=== PATIENT | female | born 1990 | race Caucasian/White ===

== ENCOUNTER 2019-01-18 08:45 | Emergency (ER) | payer MEDICAID, OTHER ==
[~2019-01-18] VITALS: Ht 160 cm; Wt 61.2 kg
[2019-01-18 09:16] VITALS: BP 134/74
== END 2019-01-18 10:16 | disposition home or self-care (01) ==
LOC: ER 08:50
DX: S10.86XA Insect bite of other specified part of neck, initial encounter (principal); S20.462A Insect bite (nonvenomous) of left back wall of thorax, initial encounter; S20.461A Insect bite (nonvenomous) of right back wall of thorax, initial encounter; S60.862A Insect bite (nonvenomous) of left wrist, initial encounter; S60.861A Insect bite (nonvenomous) of right wrist, initial encounter; S90.562A Insect bite (nonvenomous), left ankle, initial encounter; S90.561A Insect bite (nonvenomous), right ankle, initial encounter; W57.XXXA Bitten or stung by nonvenomous insect and other nonvenomous arthropods, initial encounter; Y93.89 Activity, other specified; Y99.8 Other external cause status; Y92.89 Other specified places as the place of occurrence of the external cause

== ENCOUNTER 2019-08-19 16:57 | Emergency (ER) | payer MEDICAID ==
[~2019-08-19] VITALS: Ht 160 cm; Wt 61.2 kg
[2019-08-19 17:37] LABS: Basophils # (auto) 0 uL; Basophils % (auto) 0.4 % (0.0-2.0); Eosinophils # (auto) 0.1 uL; Eosinophils % (auto) 1.3 % (0.0-7.0); Hemoglobin 15.2 g/dL (12.2-16.2); Lymphocytes # (auto) 1.8 uL; Lymphocytes % (auto) 23.8 % (10.0-50.0); Mean Corpuscular Hemoglobin 30.9 pg (28.0-32.0); Mean Corpuscular Hgb Conc. 34.4 g/dL (32.0-36.0); Mean Corpuscular Volume 89.6 fL (80.0-100.0); Monocytes # (auto) 0.4 uL; Monocytes % (auto) 5.9 % (0.0-12.0); Neutrophils # (auto) 5.1 uL; Neutrophils % (auto) 68.6 % (37.0-80.0); Platelet Count (auto) 312 10^3/uL (140-450); Red Blood Cells 4.91 10^6/uL (4.0-5.20); Red Cell Distribution Width 12.8 % (11.8-14.3); White Blood Cell 7.4 10^3/uL (4.4-10.8)
[2019-08-19 17:50] LABS: INR 1.01 (0.9-1.15); Partial Thromboplastin Time 25.3 sec (23.64-32.05)
[2019-08-19 17:52] LABS: Albumin 4.5 g/dL (3.4-5.0); BUN/Creatinine Ratio 18.3
[2019-08-19 17:55] LABS: Bilirubin, Total 0.7 mg/dL (0.2-1.0); Total Protein 8.1 g/dL (6.4-8.2)
[2019-08-19] MEDS ORDERED: ONDANSETRON HCL 4 MG/2 ML VIAL ONE (18:15)
[2019-08-19] MEDS ORDERED: ONDANSETRON HCL 4 MG/2 ML VIAL IV ONE ×3 (18:30→20:45)
[2019-08-19] MEDS ORDERED: MORPHINE SULFATE 4 MG/ML SYR/VIAL IV ONE (19:00)
[2019-08-19] MEDS ORDERED: diphenhdrAMINE HCL 50 MG/1 ML VL ONE (19:06)
[2019-08-19] MEDS ORDERED: diphenhdrAMINE HCL 50 MG/1 ML VL IV ONE (19:15)
[2019-08-19] MEDS ORDERED: HYDROmorphone HCL 2 MG/ML VL IV ONE (20:45)
[2019-08-19 21:32] VITALS: BP 115/69
== END 2019-08-19 22:20 | disposition home or self-care (01) ==
LOC: ER 16:57
DX: N93.9 Abnormal uterine and vaginal bleeding, unspecified (principal); R11.2 Nausea with vomiting, unspecified; Z88.1 Allergy status to other antibiotic agents; Z90.89 Acquired absence of other organs
CPT/HCPCS: 36415; 76856; 80053; 84702; 85025; 85610; 85730; 86850; 86900; 86901; 96374; 96375; 96376; 99284; J1170; J1200; J2270; J2405

== ENCOUNTER 2019-09-09 12:47 | Emergency (ER) | payer MEDICAID ==
[~2019-09-09] VITALS: Ht 160 cm; Wt 63.5 kg
[2019-09-09 13:51] LABS: Basophils # (auto) 0.1 uL; Eosinophils # (auto) 0.4 uL; Eosinophils % (auto) 6.2 % (0.0-7.0); Hematocrit 40.5 % (36.0-46.0); Hemoglobin 13.7 g/dL (12.2-16.2); Lymphocytes # (auto) 1.8 uL; Lymphocytes % (auto) 28.9 % (10.0-50.0); Mean Corpuscular Hemoglobin 30.7 pg (28.0-32.0); Mean Corpuscular Hgb Conc. 33.9 g/dL (32.0-36.0); Mean Corpuscular Volume 90.5 fL (80.0-100.0); Monocytes # (auto) 0.4 uL; Monocytes % (auto) 6.9 % (0.0-12.0); Neutrophils # (auto) 3.5 uL; Nucleated Red Blood Cells % 0.1 %; Platelet Count (auto) 253 10^3/uL (140-450); Red Blood Cells 4.48 10^6/uL (4.0-5.20); White Blood Cell 6.2 10^3/uL (4.4-10.8)
[2019-09-09 14:13] LABS: Albumin 3.7 g/dL (3.4-5.0); BUN/Creatinine Ratio 14.1; Calcium 8.7 mg/dL (8.5-10.1); Potassium 3.9 mmol/L (3.5-5.1)
[2019-09-09 14:16] LABS: Bilirubin, Total 0.5 mg/dL (0.2-1.0); Total Protein 7.3 g/dL (6.4-8.2)
[2019-09-09 15:33] LABS: Urine Bacteria FEW /hpf (None Seen); Urine Blood 3+ /uL (Negative); Urine Mucus FEW (None Seen); Urine Specific Gravity 1.027 (1.001-1.035); Urine WBC 37 /hpf (0 - 5)
[2019-09-09] MEDS: PROMETHAZINE HCL 25 MG/ML 1ML IV ONE (17:32)
[2019-09-09] MEDS: MORPHINE SULF INJ 2 MG/ML SYRINGE 1ML IV ONE (17:38)
[2019-09-09] MEDS: SODIUM CHLORIDE 0.9% 1,000 ML IVB ONE (17:39)
[2019-09-09] MEDS: cefTRIAXone 1GM/50ML D5W 50 ML IV ONE (17:39)
[2019-09-09 18:31] VITALS: BP 108/49
== END 2019-09-09 20:51 | disposition home or self-care (01) ==
LOC: ER 13:00
DX: N92.0 Excessive and frequent menstruation with regular cycle (principal); N39.0 Urinary tract infection, site not specified; Z88.1 Allergy status to other antibiotic agents; Z32.02 Encounter for pregnancy test, result negative
CPT/HCPCS: 36415; 74176; 76856; 80053; 81001; 81025; 84702; 85025; 96365; 96375; 99284; J0696; J2270; J2550

== ENCOUNTER 2019-12-27 20:32 | Emergency (ER) | payer MEDICAID ==
[~2019-12-27] VITALS: Ht 160 cm; Wt 58.1 kg
[2019-12-27 21:07] LABS: Urine Bacteria NONE SEEN /hpf (None Seen); Urine Blood Negative /uL (Negative); Urine Specific Gravity 1.024 (1.001-1.035); Urine WBC 5 /hpf (0 - 5)
[2019-12-27] MEDS ORDERED: MORPHINE SULFATE 4 MG/ML SYR/VIAL IV ONE (21:30)
[2019-12-27] MEDS ORDERED: ONDANSETRON HCL 4 MG/2 ML VIAL IV ONE (21:30)
[2019-12-27] MEDS ORDERED: SODIUM CHLORIDE 0.9% 1,000 ML IV ONE ×2 (21:30→22:45)
[2019-12-27 21:44] LABS: Basophils # (auto) 0 10 ^3/uL (0-0.2); Basophils % (auto) 0.5 % (0.0-2.0); Eosinophils # (auto) 0.3 10 ^3/uL (0-0.8); Eosinophils % (auto) 3.8 % (0.0-7.0); Hematocrit 44.9 % (36.0-46.0); Hemoglobin 14.9 g/dL (12.2-16.2); Lymphocytes # (auto) 2.8 10 ^3/uL (0.4-5.4); Lymphocytes % (auto) 41.4 % (10.0-50.0); Mean Corpuscular Hemoglobin 28.9 pg (28.0-32.0); Mean Corpuscular Hgb Conc. 33.1 g/dL (32.0-36.0); Mean Corpuscular Volume 87.3 fL (80.0-100.0); Monocytes # (auto) 0.5 10 ^3/uL (0-1.3); Monocytes % (auto) 7.2 % (0.0-12.0); Neutrophils # (auto) 3.2 10 ^3/uL (1.6-8.6); Neutrophils % (auto) 47.1 % (37.0-80.0); Platelet Count (auto) 315 10^3/uL (140-450); Red Blood Cells 5.14 10^6/uL (4.0-5.20); Red Cell Distribution Width 13.2 % (11.8-14.3); White Blood Cell 6.8 10^3/uL (4.4-10.8)
[2019-12-27 22:07] LABS: Calcium 8.3 mg/dL (8.5-10.1); Potassium 3.8 mmol/L (3.5-5.1)
[2019-12-27 22:10] LABS: BUN/Creatinine Ratio 25.5; Bilirubin, Total 0.4 mg/dL (0.2-1.0); Total Protein 7.9 g/dL (6.4-8.2)
[2019-12-27] MEDS ORDERED: IOHEXOL 300 MG/ML 100ML BOTTLE IJ ONE (22:36)
[2019-12-27] MEDS ORDERED: diphenhdrAMINE HCL 50 MG/1 ML VL IV ONE (23:45)
[2019-12-27 23:54] VITALS: BP 111/72
[2020-06-10] MEDS ORDERED: CLIN300C8 PO (12:18)
[2020-06-10] MEDS ORDERED: SACC250C PO ×2 (12:18→12:25)
== END 2019-12-28 00:31 | disposition home or self-care (01) ==
LOC: ER 20:32
DX: N12 Tubulo-interstitial nephritis, not specified as acute or chronic (principal); K52.9 Noninfective gastroenteritis and colitis, unspecified
CPT/HCPCS: 36415; 74177; 80053; 81001; 82150; 83690; 84702; 85025; 96361; 96374; 96375; 99285; J1200; J2270; J2405; J7030; Q9967

== ENCOUNTER 2020-05-05 18:43 | Inpatient (IN) | payer MEDICAID ==
[~2020-05-05] VITALS: Ht 165.1 cm; Wt 77.9 kg
[2020-05-05] MEDS ORDERED: SODIUM CHLORIDE 0.9% 1,000 ML IVB ONE (19:28)
[2020-05-05 20:10] LABS: Basophils # (auto) 0 10 ^3/uL (0-0.2); Basophils % (auto) 0.4 % (0.0-2.0); Eosinophils # (auto) 0.1 10 ^3/uL (0-0.8); Eosinophils % (auto) 0.5 % (0.0-7.0); Hematocrit 48.4 % (36.0-46.0); Hemoglobin 16.2 g/dL (12.2-16.2); Lymphocytes # (auto) 1.8 10 ^3/uL (0.4-5.4); Lymphocytes % (auto) 19.1 % (10.0-50.0); Mean Corpuscular Hemoglobin 28.3 pg (28.0-32.0); Mean Corpuscular Hgb Conc. 33.5 g/dL (32.0-36.0); Mean Corpuscular Volume 84.6 fL (80.0-100.0); Monocytes # (auto) 0.6 10 ^3/uL (0-1.3); Monocytes % (auto) 6.3 % (0.0-12.0); Neutrophils # (auto) 6.9 10 ^3/uL (1.6-8.6); Neutrophils % (auto) 73.7 % (37.0-80.0); Platelet Count (auto) 309 10^3/uL (140-450); Red Blood Cells 5.73 10^6/uL (4.0-5.20); Red Cell Distribution Width 14.6 % (11.8-14.3); White Blood Cell 9.4 10^3/uL (4.4-10.8)
[2020-05-05 20:27] LABS: Albumin 4.2 g/dL (3.4-5.0); Anion Gap 7 (5-15); Blood Alcohol < 3.0 mg/dL (0-5); Blood Urea Nitrogen 12 mg/dL (7-18); Calcium 9.3 mg/dL (8.5-10.1); Carbon Dioxide 22 mmol/L (21-32); Chloride 102 mmol/L (98-107); Glucose 113 mg/dL (74-106); INR 0.98 (0.9-1.15); Partial Thromboplastin Time 26.2 sec (23.0-31.2); Potassium 4.1 mmol/L (3.5-5.1); Sodium 131 mmol/L (136-145)
[2020-05-05 20:31] LABS: Urine Bacteria NONE SEEN /hpf (None Seen); Urine Blood Negative /uL (Negative); Urine Specific Gravity 1.015 (1.001-1.035); Urine WBC 1 /hpf (0 - 5)
[2020-05-05 20:32] LABS: Alanine Aminotransferase 39 U/L (13-56); Alkaline Phosphatase 102 U/L (45-117); Aspartate Aminotransferase 37 U/L (15-37); BUN/Creatinine Ratio 16.7; Bilirubin, Total 0.6 mg/dL (0.2-1.0); GFR African American 122 mL/min; GFR Non-African American 101 mL/min; Total Protein 8.4 g/dL (6.4-8.2)
[2020-05-05 20:43] LABS: Alcohol, Urine < 3.0 mg/dL (0-10); Amphetamine Screen, Urine NEGATIVE (NEGATIVE); Barbiturate Scree,Urine NEGATIVE (NEGATIVE); Cannabinoid Screen, Urine NEGATIVE (NEGATIVE); Cocaine Screen, Urine NEGATIVE (NEGATIVE); Opiate Scree,Urine NEGATIVE (NEGATIVE); Phencyclidine Screen, Urine NEGATIVE (NEGATIVE)
[2020-05-05 21:03] LABS: Benzodiazephine Screen, Urine POSITIVE (NEGATIVE)
[2020-05-05] MEDS ORDERED: MORPHINE SULF INJ 2 MG/ML SYRINGE 1ML IV ONE (22:15)
[2020-05-05] MEDS ORDERED: ONDANSETRON HCL 4 MG/2 ML VIAL IV ONE (22:15)
[2020-05-06] MEDS ORDERED: ONDANSETRON HCL 4 MG/2 ML VIAL IV PRN (00:30)
--- NOTE | 2020-05-06 01:20 | NUR ---
MS admit from ER TORO GONZALEZ admitted to MS. Patient oriented to DEBI MCQUEEN, primary RN, unit, room, bed, and unit policies regarding patient care and visiting hours. Patient weighed by bedscale and encouraged to call if they need something. Patient is very lethargic and will only respond with one word answers. Patient currently laying in bed with the rails up x2. Bed is locked in the lowest position.
[2020-05-06] MEDS ORDERED: AMI25T PO (01:39)
[2020-05-06] MEDS ORDERED: ALBU108A5 INH (01:40)
[2020-05-06] MEDS ORDERED: LEVE500T32 PO (01:54)
[2020-05-06 05:00] VITALS: BP 122/71
[2020-05-06 08:00] VITALS: BP 118/68
[2020-05-06 09:00] VITALS: BP 118/65
[2020-05-06] MEDS: FAMOTIDINE 20 MG TAB PO SCH ×2 (10:15→21:34)
[2020-05-06] MEDS ORDERED: ALBUTEROL SULF 2.5 MG/0.5ML(0.5%) NEB SOLN NEB PRN (15:15)
[2020-05-06] MEDS ORDERED: IPRATROPIUM BROM 0.5 MG/2.5ML INH SOL NEB PRN (15:15)
[2020-05-06 17:00] VITALS: BP 116/69
[2020-05-06] MEDS: SODIUM CHLORIDE 0.9% 1,000 ML IV SCH (18:03)
[2020-05-06 20:12] VITALS: BP 116/69
[2020-05-06 22:00] VITALS: BP 119/66
[2020-05-07 05:00] VITALS: BP 114/75
[2020-05-07 07:19] LABS: BUN/Creatinine Ratio 22.1; Calcium 8.3 mg/dL (8.5-10.1); Potassium 3.8 mmol/L (3.5-5.1)
--- NOTE | 2020-05-07 07:30 | NUR ---
ASSESSED PT FOR PRN MED NEB. PT ON ROOM AIR WITH NO DISTRESS NOTED. SP02 97% NO INDICATION FOR PRN MED NEB AT THIS TIME.
[2020-05-07 07:43] LABS: Basophils # (auto) 0.1 10 ^3/uL (0-0.2); Basophils % (auto) 0.5 % (0.0-2.0); Eosinophils # (auto) 0 10 ^3/uL (0-0.8); Eosinophils % (auto) 0.3 % (0.0-7.0); Hematocrit 42.7 % (36.0-46.0); Hemoglobin 14.2 g/dL (12.2-16.2); Lymphocytes # (auto) 2.3 10 ^3/uL (0.4-5.4); Lymphocytes % (auto) 20.3 % (10.0-50.0); Mean Corpuscular Hemoglobin 28.3 pg (28.0-32.0); Mean Corpuscular Hgb Conc. 33.3 g/dL (32.0-36.0); Mean Corpuscular Volume 85.1 fL (80.0-100.0); Monocytes # (auto) 0.8 10 ^3/uL (0-1.3); Monocytes % (auto) 7.1 % (0.0-12.0); Neutrophils # (auto) 8.1 10 ^3/uL (1.6-8.6); Neutrophils % (auto) 71.8 % (37.0-80.0); Nucleated Red Blood Cells % 0.1 %; Platelet Count (auto) 259 10^3/uL (140-450); Red Blood Cells 5.02 10^6/uL (4.0-5.20); Red Cell Distribution Width 15.2 % (11.8-14.3); White Blood Cell 11.3 10^3/uL (4.4-10.8)
--- NOTE | 2020-05-07 07:49 | NUR ---
Opening Note Assumed pt care from NOC RN. Pt is a/ox4 with no s/s of distress or SOB. Pt is currently laying in bed with no complaints at this time. Discussed POC with pt and pending Neurology consult. Safety measures maintained with call light within reach, bed in lowest position and side rails up. Will continue to monitor for changes.
[2020-05-07] MEDS: SODIUM CHLORIDE 0.9% 1,000 ML IV SCH (08:48)
[2020-05-07] MEDS: FAMOTIDINE 20 MG TAB PO SCH ×2 (08:49→22:03)
[2020-05-07 09:00] VITALS: BP 120/69
--- NOTE | 2020-05-07 10:23 | NUR ---
Dr Rubalcava at Bedside MD to see pt. Discussed POC. Pending Neurology consult. New orders given, read back and verified. Will implement.
[2020-05-07] MEDS: ACETAMINOPHEN 325 MG TAB PO PRN (10:37)
[2020-05-07] MEDS ORDERED: levETIRAcetam 500 MG TAB PO ONE (12:00)
[2020-05-07 12:53] VITALS: BP 126/84
[2020-05-07] MEDS ORDERED: MILK OF MAGNESIA 30ML SUSP PO ONE (14:30)
[2020-05-07 17:17] VITALS: BP 129/80
--- NOTE | 2020-05-07 19:40 | NUR ---
Opening Shift Note Assumed care of patient, awake and alert. A&Ox4. Patient lying in bed very lethargic. No S/S of distress/SOB or pain. Safety measures maintained by keeping the bed locked in lowest position, 2 side rails up, personal items and call light within reach. Instructed on POC and to call for assist PRN, will continue to monitor for changes Q1hr and PRN.
[2020-05-07 21:36] VITALS: BP 121/74
[2020-05-07] MEDS: levETIRAcetam 500 MG TAB PO SCH (22:03)
[2020-05-07] MEDS: DOCUSATE SOD 100 MG CAP PO SCH (22:03)
[2020-05-08] MEDS: SODIUM CHLORIDE 0.9% 1,000 ML IV SCH ×2 (00:35→17:46)
[2020-05-08 04:46] VITALS: BP 113/52
[2020-05-08 07:13] LABS: Basophils # (auto) 0 10 ^3/uL (0-0.2); Basophils % (auto) 0.3 % (0.0-2.0); Eosinophils # (auto) 0 10 ^3/uL (0-0.8); Eosinophils % (auto) 0.2 % (0.0-7.0); Hematocrit 39.2 % (36.0-46.0); Hemoglobin 13.2 g/dL (12.2-16.2); Lymphocytes # (auto) 1.9 10 ^3/uL (0.4-5.4); Lymphocytes % (auto) 16.8 % (10.0-50.0); Mean Corpuscular Hemoglobin 28.8 pg (28.0-32.0); Mean Corpuscular Hgb Conc. 33.7 g/dL (32.0-36.0); Mean Corpuscular Volume 85.4 fL (80.0-100.0); Monocytes # (auto) 0.6 10 ^3/uL (0-1.3); Monocytes % (auto) 5.3 % (0.0-12.0); Neutrophils # (auto) 8.9 10 ^3/uL (1.6-8.6); Neutrophils % (auto) 77.4 % (37.0-80.0); Platelet Count (auto) 282 10^3/uL (140-450); Red Cell Distribution Width 15.6 % (11.8-14.3); White Blood Cell 11.5 10^3/uL (4.4-10.8)
[2020-05-08 07:33] LABS: BUN/Creatinine Ratio 23.1; Calcium 8.2 mg/dL (8.5-10.1); Potassium 3.3 mmol/L (3.5-5.1)
--- NOTE | 2020-05-08 07:56 | NUR ---
OPENING SHIFT NOTE Assumed Care of pt. Pt is awake and A&Ox4 with no s/s of distress or SOB. Reviewed POC with pt. Call light within reach, bed in lowest position and side rails up. Will continue to monitor for changes Q1HR.
[2020-05-08 09:30] VITALS: BP 137/80
[2020-05-08] MEDS: DOCUSATE SOD 100 MG CAP PO SCH ×2 (09:41→21:58)
[2020-05-08] MEDS: levETIRAcetam 500 MG TAB PO SCH (09:41)
[2020-05-08] MEDS: FAMOTIDINE 20 MG TAB PO SCH ×2 (09:41→21:58)
--- NOTE | 2020-05-08 10:31 | NUR ---
Respiratory note: PT ASSESSED FOR PRN TX. HR 94, RR 16, POX 99% ON RA, BS ARE CLEAR. NO SOB OR DISTRESS NOTED. PT NOTIFY TO CALL RT FOR TX.
[2020-05-08 12:46] VITALS: BP 139/81
[2020-05-08] MEDS ORDERED: POTASSIUM EFFERVESENT TAB 25 MEQ PO ONE (14:30)
--- NOTE | 2020-05-08 15:40 | NUR ---
PT REFUSED BREAKFAST AND DINNER. DIETARY CONSULT PLACED PER PROTOCOL.
[2020-05-08 16:30] VITALS: BP 141/91
--- NOTE | 2020-05-08 18:57 | NUR ---
Respiratory note: ASSESSMENT FOR PRN MED NEB TX, PT IN NO RESPIRATORY DISTRESS. RESTING COMFORTABLY IN BED AT THIS TIME. HR 75, SPO2 96% ON ROOM AIR, RR 16, BS CLEAR. MED NEB TX NOT INDICATED AT THIS TIME. WILL CONTINUE TO MONITOR.
--- NOTE | 2020-05-08 19:30 | NUR ---
Opening Shift Note Assumed care of patient, awake and alert. A&Ox2. Patient is unaware of time and situation. No S/S of distress/SOB or pain. Safety measures maintained by keeping the bed locked in lowest position, 2 side rails up, personal items and call light within reach. Instructed on POC and to call for assist PRN, will continue to monitor for changes Q1hr and PRN.
--- NOTE | 2020-05-08 20:30 | NUR ---
MD Varela at bedside.
[2020-05-08] MEDS ORDERED: LORazepam 2MG/ML-1ML VIAL IV PRN ×2 (21:30)
[2020-05-08] MEDS ORDERED: levETIRAcetam 500 MG TAB PO ONE (21:45)
[2020-05-08 22:00] VITALS: BP 148/93
[2020-05-08] MEDS: ACETAMINOPHEN 325 MG TAB PO PRN (23:46)
[2020-05-09 05:00] VITALS: BP 155/76
[2020-05-09] MEDS: levETIRAcetam 500 MG TAB PO SCH ×4 (05:42→22:00)
[2020-05-09 06:22] LABS: Basophils # (auto) 0 10 ^3/uL (0-0.2); Basophils % (auto) 0.3 % (0.0-2.0); Eosinophils # (auto) 0 10 ^3/uL (0-0.8); Eosinophils % (auto) 0.1 % (0.0-7.0); Hematocrit 41.5 % (36.0-46.0); Hemoglobin 13.9 g/dL (12.2-16.2); Lymphocytes # (auto) 2.1 10 ^3/uL (0.4-5.4); Lymphocytes % (auto) 23.2 % (10.0-50.0); Mean Corpuscular Hemoglobin 29.7 pg (28.0-32.0); Mean Corpuscular Hgb Conc. 33.5 g/dL (32.0-36.0); Mean Corpuscular Volume 88.7 fL (80.0-100.0); Monocytes # (auto) 0.5 10 ^3/uL (0-1.3); Monocytes % (auto) 5.8 % (0.0-12.0); Neutrophils # (auto) 6.5 10 ^3/uL (1.6-8.6); Neutrophils % (auto) 70.6 % (37.0-80.0); Platelet Count (auto) 291 10^3/uL (140-450); Red Blood Cells 4.68 10^6/uL (4.0-5.20); Red Cell Distribution Width 15.8 % (11.8-14.3); White Blood Cell 9.2 10^3/uL (4.4-10.8)
[2020-05-09 06:40] LABS: Potassium 3.3 mmol/L (3.5-5.1)
[2020-05-09 07:28] LABS: Calcium 8.2 mg/dL (8.5-10.1)
--- NOTE | 2020-05-09 08:08 | NUR ---
OPENING SHIFT NOTE Resumed Care of pt. Pt is awake and A&Ox2. PT is not aware of place or situation. No s/s of distress or SOB. Reviewed POC with pt. Call light within reach, bed in lowest position and side rails up. Will continue to monitor for changes Q1HR.
[2020-05-09 09:14] VITALS: BP 141/90
[2020-05-09] MEDS: FAMOTIDINE 20 MG TAB PO SCH ×2 (10:14→21:08)
[2020-05-09] MEDS: DOCUSATE SOD 100 MG CAP PO SCH ×2 (10:14→21:08)
[2020-05-09] MEDS: SODIUM CHLORIDE 0.9% 1,000 ML IV SCH (10:14)
--- NOTE | 2020-05-09 11:52 | NUR ---
EEG-ELECTROENCEPHALOGRAM COMPLETED ON 05/09/2020 @ 11:22.
[2020-05-09 12:27] VITALS: BP 154/96
[2020-05-09] MEDS ORDERED: POTASSIUM EFFERVESENT TAB 25 MEQ PO ONE (13:00)
--- NOTE | 2020-05-09 14:18 | NUR ---
PT ASSESSED FOR PRN MED NEB, PT ON RA WITH SPO2 96%, HR 73, RR 15 WITH CLEAR BS. NO DISTRESS NOTED. WILL CONTINUE TO MONITOR PT.
[2020-05-09] MEDS ORDERED: MILK OF MAGNESIA 30ML SUSP PO ONE (14:30)
--- NOTE | 2020-05-09 14:34 | NUR ---
Nutrition Assessment Notes Please refer to link for full assessment notes. Est Energy needs: [id number] kcals (20-23 kcal/kgBW) Est Protein needs: 64-78 gms/day (0.8-1.0 gm/kgBW) Will continue to monitor and reassess prn. Addendum: 05/09/20 at [address] Amended: Links added.
[2020-05-09 16:47] VITALS: BP 149/92
--- NOTE | 2020-05-09 18:25 | NUR ---
Respiratory note: PT ASSESSED FOR PRN MED NEB, PT ON RA WITH SPO2 98%, HR 78, RR 16 WITH CLEAR BS. NO DISTRESS NOTED. WILL CONTINUE TO MONITOR PT.
[2020-05-09] MEDS ORDERED: levETIRAcetam 500 MG/5ML INJ IV ONE (20:47)
[2020-05-09 21:28] VITALS: BP 149/92
[2020-05-09 21:35] VITALS: BP 139/86
[2020-05-10] MEDS: SODIUM CHLORIDE 0.9% 1,000 ML IV SCH (02:45)
[2020-05-10 04:54] VITALS: BP 114/70
--- NOTE | 2020-05-10 06:15 | NUR ---
Respiratory note: HR 75, RR 16, SPO2 98% ON RA, BS CLEAR. PRN MED NEB TX NOT INDICATED AT THIS TIME. NO SIGNS OR SYMPTOMS OF RESPIRATORY DISTRESS NOTED AT THIS TIME.
[2020-05-10 08:59] VITALS: BP 116/67
[2020-05-10 09:04] LABS: Basophils # (auto) 0 10 ^3/uL (0-0.2); Basophils % (auto) 0.2 % (0.0-2.0); Eosinophils # (auto) 0.1 10 ^3/uL (0-0.8); Eosinophils % (auto) 0.5 % (0.0-7.0); Hematocrit 42.4 % (36.0-46.0); Lymphocytes # (auto) 2.6 10 ^3/uL (0.4-5.4); Lymphocytes % (auto) 24.8 % (10.0-50.0); Mean Corpuscular Hemoglobin 28.6 pg (28.0-32.0); Mean Corpuscular Hgb Conc. 33.1 g/dL (32.0-36.0); Mean Corpuscular Volume 86.4 fL (80.0-100.0); Monocytes # (auto) 0.7 10 ^3/uL (0-1.3); Monocytes % (auto) 6.7 % (0.0-12.0); Neutrophils # (auto) 7.1 10 ^3/uL (1.6-8.6); Neutrophils % (auto) 67.8 % (37.0-80.0); Nucleated Red Blood Cells % 0.3 %; Platelet Count (auto) 305 10^3/uL (140-450); Red Blood Cells 4.91 10^6/uL (4.0-5.20); Red Cell Distribution Width 15.6 % (11.8-14.3); White Blood Cell 10.5 10^3/uL (4.4-10.8)
[2020-05-10 09:28] LABS: Potassium 3.4 mmol/L (3.5-5.1)
[2020-05-10 09:30] LABS: BUN/Creatinine Ratio 20.7
[2020-05-10] MEDS: FAMOTIDINE 20 MG TAB PO SCH (10:00)
[2020-05-10] MEDS: DOCUSATE SOD 100 MG CAP PO SCH (10:00)
[2020-05-10 13:00] VITALS: BP 146/94
[2020-05-10] MEDS ORDERED: SODIUM CHLORIDE 0.9% 1,000 ML IV SCH (13:00)
[2020-05-10] MEDS ORDERED: POTASSIUM CHL 20MEQ/100ML 100 ML IV ONE (13:00)
--- NOTE | 2020-05-10 15:00 | NUR ---
PATIENT PRESSED NURSING STATION CALL BUTTON AND NOTIFIED MYSELF AND ANOTHER NURSE HER POTASSIUM IS BURNING HER ARM. PATIENT VERBALIZED THIS IN HER OWN WORDS.
--- NOTE | 2020-05-10 15:23 | NUR ---
EEG-FOLLOW UP ELECTROENCEPHALOGRAM COMPLETED @13:07.
--- NOTE | 2020-05-10 15:30 | NUR ---
TELE [facility] TV SET UP.
[2020-05-10 17:00] VITALS: BP 148/91
--- NOTE | 2020-05-10 17:54 | NUR ---
PATIENT REQUESTING TO LEAVE AMA, CALLED AND SPOKE TO KAROL AMARO. PREM SPOKE TO PATIENT AND PATIENT STILL REFUSES TO STAY AT LEAST TILL MORNING TO GO OVER TELE PSYCH, OF NOW 1754 NO TELE PSYCH REPORT RECEIVED. CHARGE NURSE BRYAN AWARE AND PATIENT EXPLAINED THE RISKS OF LEAVING AND BENEFITS OF STAYING. PATIENT VERBALIZED UNDERSTANDING. DR DONIS PAGED THROUGH PBX TO NOTIFY WILL AWAIT CALL BACK.
--- NOTE | 2020-05-10 18:37 | NUR ---
AMA Note TORO GONZALEZ states they want to leave the hospital Against Medical Advice (AMA). Patient encouraged to stay for further treatment/stabilization. DR SHAIKH VALIENTE notified of patient's wishes call back received at time of AMA. Patient advised of the risks and benefits of leaving AMA, as well as fiance and patient refused. Patient verbalized understanding. Patient encouraged to return to the ER if symptoms do not improve or worsen. Juares catheter taking out with no s/s of distress noted. IV removed with catheter intact.
== END 2020-05-10 18:30 | disposition left against medical advice (07) | DRG 52 ==
LOC: EDBD 18:43 → ER 18:49 → WEST WING 18:50
PROVIDERS: ADMIT Nurse Practitioner; ATTEND Internal Medicine
DX: G93.41 Metabolic encephalopathy (principal); E66.9 Obesity, unspecified; J45.909 Unspecified asthma, uncomplicated; E87.1 Hypo-osmolality and hyponatremia; K59.00 Constipation, unspecified; E87.6 Hypokalemia; F25.9 Schizoaffective disorder, unspecified; G40.209 Localization-related (focal) (partial) symptomatic epilepsy and epileptic syndromes with complex partial seizures, not intractable, without status epilepticus; F32.9 Major depressive disorder, single episode, unspecified; R00.0 Tachycardia, unspecified; Z53.29 Procedure and treatment not carried out because of patient's decision for other reasons; Z79.899 Other long term (current) drug therapy; Z72.0 Tobacco use; Z68.28 Body mass index [BMI] 28.0-28.9, adult
CPT/HCPCS: 36415; 70450; 70551; 71045; 74176; 80048; 80053; 80307; 80320; 81001; 81025; 82140; 82533; 82962; 83880; 84443; 84484; 84702; 85025; 85379; 85610; 85730; 95819; G0378; J2405; J3480; J7060

== ENCOUNTER 2020-06-08 07:41 | Inpatient (IN) | payer MEDICAID ==
[~2020-06-08] VITALS: Ht 160 cm; Wt 82.1 kg
[~2020-06-08 07:41] MED LIST: ALBU108A5 INH; AMI25T PO; LEVE500T32 PO
[2020-06-08 08:34] LABS: Urine Bacteria NONE SEEN /hpf (None Seen); Urine Blood Negative /uL (Negative); Urine Specific Gravity 1.002 (1.001-1.035); Urine WBC 1 /hpf (0 - 5)
[2020-06-08 09:03] LABS: Basophils # (auto) 0 10 ^3/uL (0-0.2); Basophils % (auto) 0.4 % (0.0-2.0); Eosinophils # (auto) 0.1 10 ^3/uL (0-0.8); Eosinophils % (auto) 1.1 % (0.0-7.0); Hematocrit 39.4 % (36.0-46.0); Hemoglobin 13.6 g/dL (12.2-16.2); Lymphocytes % (auto) 32.1 % (10.0-50.0); Mean Corpuscular Hgb Conc. 34.6 g/dL (32.0-36.0); Mean Corpuscular Volume 86.7 fL (80.0-100.0); Monocytes # (auto) 0.5 10 ^3/uL (0-1.3); Monocytes % (auto) 8.6 % (0.0-12.0); Neutrophils # (auto) 3.5 10 ^3/uL (1.6-8.6); Neutrophils % (auto) 57.8 % (37.0-80.0); Nucleated Red Blood Cells % 0.1 %; Platelet Count (auto) 427 10^3/uL (140-450); Red Blood Cells 4.54 10^6/uL (4.0-5.20); Red Cell Distribution Width 18.8 % (11.8-14.3); White Blood Cell 6.1 10^3/uL (4.4-10.8)
[2020-06-08 09:28] LABS: Albumin 3.6 g/dL (3.4-5.0); BUN/Creatinine Ratio 15.4; Calcium 9.1 mg/dL (8.5-10.1); Potassium 3.7 mmol/L (3.5-5.1)
[2020-06-08 09:31] LABS: Bilirubin, Total 0.3 mg/dL (0.2-1.0); Total Protein 7.8 g/dL (6.4-8.2)
[2020-06-08] MEDS ORDERED: SODIUM CHLORIDE 0.9% 1,000 ML IV ONE ×2 (09:45)
[2020-06-08] MEDS ORDERED: DexAMETHasone SOD PHOS 10MG/1ML VIAL INJ IV ONE (09:45)
[2020-06-08] MEDS ORDERED: PIPERACILLIN-TAZOB 3.375GM 100 ML IV ONE (09:45)
[2020-06-08] MEDS ORDERED: KETOROLAC TROMETH 30 MG/ML 1ML VIAL IV ONE (11:00)
[2020-06-08] MEDS: LORazepam 2MG/ML-1ML VIAL IV PRN ×2 (11:32→19:47)
[2020-06-08] MEDS ORDERED: ALPR2TAB2 PO (12:01)
[2020-06-08] MEDS ORDERED: OXYC325T14 PO (12:01)
--- NOTE | 2020-06-08 12:20 | NUR ---
MS admit from ER TORO GONZALEZ admitted to MS after SBAR received. Patient oriented to Yumiko Garsia, primary RN, unit, room, bed, and unit policies regarding patient care and visiting hours. Patient weighed by bedscale and encouraged to call if they need something. All questions and concerns addressed, patient verbalized understanding. No distress or sob noted at this time, pt requesting apple juice and provided it to her. Cont to monitor.
[2020-06-08] MEDS: CLINDAMYCIN 300MG IV 50 ML IV SCH ×2 (14:00→23:57)
[2020-06-08 17:00] VITALS: BP 124/75
--- NOTE | 2020-06-08 18:00 | NUR ---
Wound photos taken of small sores noted to bilat buttocks and RLE and form placed in chart. No drainage noted at this time, open to air. Cont care
[2020-06-08] MEDS: OXYCODONE W/ ACETAMINOPHEN 5/325MG TABLET PO PRN ×2 (18:06→23:56)
--- NOTE | 2020-06-08 19:00 | NUR ---
Patient care endorsed endorsed care to Gabby rn, pt covid 19 report is negative and charge aware. Patient laying in bed in no acute distress or sob noted. Call light within reach.
--- NOTE | 2020-06-08 19:40 | NUR ---
Opening Shift Note Assumed care of patient, awake and alert. No S/S of distress/SOB. Patient c/o anxiety. Anxiety medication given. Instructed on POC and to call for assist PRN, will continue to monitor for changes Q1hr and PRN.
--- NOTE | 2020-06-08 19:45 | NUR ---
Report/SBAR Report/SBAR given to CATE Vázquez.
--- NOTE | 2020-06-08 19:56 | NUR ---
Patient transferred Patient transferred via wheelchair to [facility]. No status change.
--- NOTE | 2020-06-08 20:00 | NUR ---
Patient arrived to unit, placed in room 297A Patient ambulated to the bed. A&Ox4, respirations even and non-labored without s/s of distress at this time. Patient then ambulated to the restroom with moderate assistance due to general weakness. Assisted with her return to the bed. Patient placed on 2L NC. VS: T 97.3, HR 110, RR 19, 95%, 115/71, 6/[address] in place. Discussed POC and advised the patient to call for assistance, the patient verbalized understanding. Oriented the patient to the bed, call light, side table, and answered questions and concerns that the patient had. Seizure precautions in place, bed in lowest locked position with 3 side rails up, call light within reach, will continue to monitor Q1hr and PRN.
[2020-06-08 22:00] VITALS: BP 115/71
[2020-06-08] MEDS: levETIRAcetam 500 MG TAB PO SCH (23:58)
--- NOTE | 2020-06-09 01:02 | NUR ---
Patient transferred to room 280B Patient transferred to 280B due to a verbal altercation with the neighboring patient in bed 297B. The patient was moved without incident to the new room. Patient tolerated well. Will continue to monitor.
[2020-06-09] MEDS: LORazepam 2MG/ML-1ML VIAL IV PRN ×3 (03:49→21:32)
[2020-06-09 04:51] VITALS: BP 116/63
[2020-06-09] MEDS: CLINDAMYCIN 300MG IV 50 ML IV SCH ×3 (07:43→21:32)
[2020-06-09 09:00] VITALS: BP 108/60
[2020-06-09] MEDS: FLORASTOR (S. BOULARDII) 250 MG CAP PO SCH (10:30)
[2020-06-09] MEDS: levETIRAcetam 500 MG TAB PO SCH ×2 (10:30→21:32)
[2020-06-09] MEDS: PANTOPRAZOLE 40 MG TAB PO SCH (10:31)
[2020-06-09] MEDS: OXYCODONE W/ ACETAMINOPHEN 5/325MG TABLET PO PRN ×2 (10:31→18:00)
[2020-06-09 10:57] LABS: Alcohol, Urine < 3.0 mg/dL (0-10); Amphetamine Screen, Urine NEGATIVE (NEGATIVE); Barbiturate Scree,Urine NEGATIVE (NEGATIVE); Benzodiazephine Screen, Urine NEGATIVE (NEGATIVE); Cannabinoid Screen, Urine NEGATIVE (NEGATIVE); Cocaine Screen, Urine NEGATIVE (NEGATIVE); Opiate Scree,Urine NEGATIVE (NEGATIVE); Phencyclidine Screen, Urine NEGATIVE (NEGATIVE)
[2020-06-09] MEDS ORDERED: cefTRIAXone 1GM/50ML D5W 50 ML IV ONE (11:00)
[2020-06-09 13:44] VITALS: BP 135/92
--- NOTE | 2020-06-09 16:22 | NUR ---
WOUND CARE NOTE: Wound care in to see patient per wound care request regarding Rt buttock skin integrity issue that are noted present on admission. Patient is 30 years old female with admitting diagnosis of Cellulitis. Patient is resting in bed in Rm. 280B. Patient is awake, alert and oriented. She's self turning and repositioning and her August score is 20. Patient is in no stated pain at this time. Noted patient's Rt buttock has multi dry scabs with pink, blanchable surrounding skin, no drainage/odor noted. Patient reported that she has history of abscess and his drain it. Cleansed wounds with mild soap and water,patted dry and applied Z Guard cream per MD order. Photograph of patient's wounds are taken for reference. Dry scabs also noted to her Rt lower leg, area is clean and dry, left open to air. Patient tolerated well. No further wound care monitoring needed at this time. RECOMMENDATION: Nursing to continue with BID/PRN cleaning and application of Z Guard cream to R buttocks wounds/scabs per MD order, reconsult for active wound, pressure injury, Low August score of 12 and below. Addendum: 06/09/20 at 1753 by Angely Pratt RN Amended: Links added.
[2020-06-09 17:28] VITALS: BP 103/53
[2020-06-09 22:00] VITALS: BP 110/66
[2020-06-10 05:00] VITALS: BP 108/52
[2020-06-10] MEDS: CLINDAMYCIN 300MG IV 50 ML IV SCH ×2 (06:23→14:00)
[2020-06-10] MEDS: LORazepam 2MG/ML-1ML VIAL IV PRN (06:24)
[2020-06-10 09:00] VITALS: BP 98/51
[2020-06-10] MEDS: levETIRAcetam 500 MG TAB PO SCH (09:57)
[2020-06-10] MEDS: PANTOPRAZOLE 40 MG TAB PO SCH (09:57)
[2020-06-10] MEDS: FLORASTOR (S. BOULARDII) 250 MG CAP PO SCH (09:58)
[2020-06-10] MEDS: OXYCODONE W/ ACETAMINOPHEN 5/325MG TABLET PO PRN (09:59)
--- NOTE | 2020-06-10 10:50 | NUR ---
DOCTOR DONIS AT BEDSIDE, DISCUSSING POC AND D/C. PATIENT VERBALIZES UNDERSTANDING AND AGREES WITH POC AND D/C.
[2020-06-10] MEDS ORDERED: ALBUTEROL SULF 2.5 MG/0.5ML(0.5%) NEB SOLN NEB PRN (11:15)
[2020-06-10] MEDS ORDERED: CLIN300C8 PO (12:18)
[2020-06-10] MEDS ORDERED: SACC250C PO ×2 (12:18→12:25)
--- NOTE | 2020-06-10 12:20 | NUR ---
PT. ASSESSED FOR PRN. MN. TX. , PT. WAS SLEEPING AT THIS TIME, NO RESP. DISTRESS OR SOB OBSERVED. HR 92,RR 20, SP02 99% ON 2LPMNC. BS. ARE CLEAR AND DIMINISHED AT THE BASES. TX. NOT INDICATED AT THIS TIME, PT. MAY CALL IF NEEDED.
[2020-06-10 13:00] VITALS: BP 98/52
[2020-06-10] MEDS ORDERED: IPRATROPIUM BROM 0.5 MG/2.5ML INH SOL NEB SCH (14:00)
--- NOTE | 2020-06-10 14:30 | NUR ---
SPOKE WITH DOCTOR Maverick MORA REGARDING PATIENTS VARGHESE AND HANNAH PER MD Tyson VARGHESE AND HANNAH. Addendum: 06/10/20 at 1454 by ZACK LEDEZMA RN RN WRONG PATIENT
--- NOTE | 2020-06-10 14:50 | NUR ---
Discharge instructions given as ordered. Encourage to follow up with PMD as instructed. All questions and concerns addressed. Patient verbalized understanding. Medication reconciliation form completed and copy given to patient. IV removed with catheter intact, pressure dressing applied. Patient taken to vehicle via wheelchair with all personal belongings, accompanied by staff. Family member waiting in front lobby for transportation home. No distress noted at time of departure.
[2020-06-10] MEDS ORDERED: MUPIROCIN 2% OINT 15gm or 22gm EACHNOSTRI SCH (22:00)
== END 2020-06-10 14:50 | disposition home or self-care (01) | DRG 383 ==
LOC: EDBD 07:41 → ER 07:41 → OVERFLOW 07:42 → EAST 12:19 → WEST WING 20:00
PROVIDERS: ADMIT Nurse Practitioner Acute Care; ATTEND Internal Medicine
DX: L03.317 Cellulitis of buttock (principal); J98.11 Atelectasis; G40.909 Epilepsy, unspecified, not intractable, without status epilepticus; E66.9 Obesity, unspecified; E86.0 Dehydration; F41.1 Generalized anxiety disorder; G89.4 Chronic pain syndrome; J45.909 Unspecified asthma, uncomplicated; Z20.828 Contact with and (suspected) exposure to other viral communicable diseases; R00.0 Tachycardia, unspecified; F32.9 Major depressive disorder, single episode, unspecified; Z79.891 Long term (current) use of opiate analgesic; Z90.49 Acquired absence of other specified parts of digestive tract; B95.62 Methicillin resistant Staphylococcus aureus infection as the cause of diseases classified elsewhere
CPT/HCPCS: 36415; 71045; 71250; 80053; 80307; 81001; 83605; 84702; 85025; 87040; 87077; 87081; 87186; 87205; 87426; 93005; G0378; J0696; J1100; J1885; J2543; J3490